=== PATIENT | male | born 2000 | race Caucasian/White ===

== ENCOUNTER 2021-12-11 02:37 | Emergency (ER) | payer OTHER ==
[~2021-12-11] VITALS: Ht 175.3 cm; Wt 97.1 kg
[2021-12-11] MEDS ORDERED: NS 1,000 ML IV ONE (08:00)
[2021-12-11] MEDS ORDERED: ONDANSETRON 4MG/2ML VIAL IV ONE (08:00)
[2021-12-11 08:50] LABS: BASO % 0.3 % (0.0-1.0); HEMATOCRIT 45.3 % (42.0-52.0); HEMOGLOBIN 15.4 g/dl (13.5-17.5); LYMPH # 0.3 10^3/uL (1.5-5.0); LYMPH % 1.8 % (24.0-44.0); MEAN CORPUSCULAR HEMOGLOBIN 29.2 pg (27.0-33.0); MONO # 0.5 10^3/uL (0.0-0.8); MONO % 3.6 % (2.0-8.0); NEUTROPHILS # 12.9 10^3/uL (1.5-8.5); NEUTROPHILS % 93.8 % (36.0-66.0); PLATELET COUNT, AUTOMATED 221 10^3/uL (150-450); RED BLOOD COUNT 5.27 10^6/uL (4.30-6.10); WHITE BLOOD COUNT 13.7 10^3/uL (4.0-10.0)
[2021-12-11 09:13] LABS: ALT/SGPT 24 U/L (12-78); AMYLASE 37 U/L (25-115); BILIRUBIN,DIRECT 0.2 MG/DL (0.0-0.2); BILIRUBIN,TOTAL 1.1 MG/DL (0.2-1.0); BLOOD UREA NITROGEN 20 MG/DL (7-18); CALCIUM LEVEL 8.9 MG/DL (8.5-10.1); CARBON DIOXIDE LEVEL 26 MEQ/L (21-32); CHLORIDE LEVEL 104 MEQ/L (98-107); CREATININE FOR GFR 1.04 MG/DL (0.70-1.30); GLOMERULAR FILTRATION RATE > 60.0 (>60); GLUCOSE, FASTING 117 MG/DL (70-100); LIPASE 43 U/L (73-393); SODIUM LEVEL 140 MEQ/L (136-145); TOTAL PROTEIN 7.4 GM/DL (6.4-8.2)
[2021-12-11] MEDS ORDERED: ONDA4TAB6 PO (09:21)
[2021-12-11 10:11] VITALS: BP 130/61
== END 2021-12-11 10:13 | disposition home or self-care (01) ==
LOC: M ED 02:37
DX: R11.2 Nausea with vomiting, unspecified (principal); R19.7 Diarrhea, unspecified
CPT/HCPCS: 80048; 80076; 82150; 83690; 85025; 96361; 96374; 99284; J2405

== ENCOUNTER 2025-03-01 09:05 | Emergency (ER) | payer OTHER ==
[~2025-03-01] VITALS: Ht 175.3 cm; Wt 90.9 kg
[~2025-03-01 09:05] MED LIST: ONDA-282 PO
[2025-03-01] MEDS: AUGMENTIN 875 MG TAB PO ONE (09:52)
[2025-03-01] MEDS: dexAMETHasone 4 MG TAB PO ONE (09:52)
[2025-03-01] MEDS ORDERED: AMOX875T2 PO (10:32)
[2025-03-01 10:54] VITALS: BP 123/76; TEMP 98; O2SAT 98
== END 2025-03-01 10:56 | disposition home or self-care (01) ==
LOC: M ED 09:05
DX: J02.9 Acute pharyngitis, unspecified (principal); Z88.1 Allergy status to other antibiotic agents; Z79.2 Long term (current) use of antibiotics